=== PATIENT | female | born 1975 | race African-American/Black ===

== ENCOUNTER 2016-07-20 06:29 | Day surgery (SDC) | payer OTHER ==
[2016-07-15 12:26] VITALS: BMI 38.4
[~2016-07-20 06:29] MED LIST: DEXAMETHASONE SOD PHOSPHATE 10 MG/ML 1 ML VIAL IV ONE; HEPARIN SODIUM,PORCINE 5,000 UNIT/ML 1 ML VIAL SQ ONE; LIDOCAINE 1% 20 ML VIAL (10MG/ML) FOR IV START INTRADERMA PRN; SCOPOLAMINE 1.5MG/72HR PATCH TRANSDERM ONE; ceFAZolin 2 GM in SODIUM CHLORIDE 0.9% 100 ML IVPB ONE
[2016-07-20 06:51] VITALS: RESP 16; TEMP 97.2
[2016-07-20] MEDS ORDERED: LIDOCAINE 1% 20 ML VIAL (10MG/ML) FOR IV START INTRADERMA ONE (07:06)
[2016-07-20] MEDS: LACTATED RINGERS 1,000 ML IV SCH ×2 (07:06→07:20)
[2016-07-20] MEDS: ONDANSETRON 4 MG/2 ML VIAL IVP ONE ×2 (07:06→10:01)
--- NOTE | 2016-07-20 07:14 | P.GSHP ---
History of Present Illness H&P Date: 07/20/16 CHIEF COMPLAINT: Gallstones. HISTORY OF PRESENT ILLNESS: Dari Parks is a 41 year-old female who reports several month history of epigastric including right upper quadrant abdominal pain. Her sister, including her mother, had their gallbladder removed. She reports gas bloat. Separately, she has been trying to lose weight and has been on Adipex. She reports primarily pain, which has been persistent for the last several months, hence her presentation today. She also completed an ultrasound that is consistent with gallstones. PAST MEDICAL HISTORY: Please see list. PAST SURGICAL HISTORY: Please see list. MEDICATIONS: Please see list. ALLERGIES: Please see list. SOCIAL HISTORY: No illicit drug use FAMILY HISTORY: No reports of Crohn disease or ulcerative colitis. REVIEW OF ORGAN SYSTEMS: Constitutional: History of weight loss, as she is on Adipex. No fevers or chills. GI: No reports of gastroesophageal reflux disease. No reports of fatty food intolerance. Has reported gas bloat. HEENT: Denies any trouble with vision, hearing or nosebleeds. No difficulty swallowing. LYMPHATIC: The patient denies any lumps and bumps around the neck. ENDOCRINE: Denies any thyroid disorders. Denies any blood sugar glucose intolerance. RESPIRATORY: Denies pneumonia. Denies any troubles with breathing or dyspnea on exertion. CARDIOVASCULAR: Denies any chest pain, palpitations, or recent heart attacks. GENITOURINARY: Denies any blood in urine or increased urinary frequency. MUSCULOSKELETAL: Has back pain, stiffness or joint arthritis. NEUROLOGIC: Denies any numbness or tingling along the distal extremities. No seizure disorders or headaches. PSYCHIATRIC: Denies any depression or suicidal ideation. HEMATOLOGIC: Denies any abnormal bleeding or bruising. BREASTS: Denies any breast lumps, pain or nipple discharge. PHYSICAL EXAM: VITAL SIGNS: Stable GENERAL: Well developed and in no acute distress. Pleasant. HEENT: No sclera icterus. Extraocular movements grossly intact. Moist buccal mucosa. Head is atraumatic, normocephalic. Hears conversational speech. No nasal drainage. NECK: Supple without lymphadenopathy. No JV distention. CHEST: Non-labored respirations and equal bilateral excursions. CARDIOVASCULAR: Regular rate and rhythm. Palpable 2+ radial pulses. ABDOMEN: Soft. Nondistended. Tender right upper quadrant. MUSCULOSKELETAL: No clubbing, cyanosis or edema. NEUROLOGIC: No focal or lateralizing signs. PSYCH: Appropriate affect. Alert and oriented to person, place and time. STUDIES: Ultrasound was consistent with gallstones. ASSESSMENT: 1. Symptomatic gallstones. 2. Obesity. 3. Right upper quadrant abdominal pain. PLAN: 1. She has symptomatic cholelithiasis and I have recommended cholecystectomy. Robotic assisted laparoscopic approach for minimally invasive techniques is feasible. 2. DVT prophylaxis. 3. Antibiotics prophylaxis. 4. Laboratory results were reviewed and demonstrated a low lipase. No evidence of pancreatitis. Past Medical History Additional Past Medical History / Comment(s): GALLBLADDER DISORDER History of Any Multi-Drug Resistant Organisms: None Reported Past Surgical History: Section Additional Past Surgical History / Comment(s): C-SECT X 2 Past Anesthesia/Blood Transfusion Reactions: No Reported Reaction Past Psychological History: No Psychological Hx Reported Smoking Status: Never smoker Past Alcohol Use History: None Reported Past Drug Use History: None Reported - Past Family History Mother Family Medical History: Cancer Medications and Allergies Home Medications Medication Instructions Recorded Confirmed Type No Known Home Medications [No 07/15/16 07/20/16 History Known Home Medications] Allergies Allergy/AdvReac Type Severity Reaction Status Date / Time No Known Allergies Allergy Verified 07/20/16 06:41 Surgical - Exam Vital Signs Temp Pulse Resp BP Pulse Ox 97.2 F L 82 16 110/76 99 07/20/16 06:50 07/20/16 06:50 07/20/16 06:50 07/20/16 06:50 07/20/16 06:50
[2016-07-20] MEDS ORDERED: GLYCOPYRROLATE 0.2 MG/ML 2 ML VIAL ONE (07:29)
[2016-07-20] MEDS ORDERED: fentaNYL (PF) 50 MCG/ML 2 ML AMP ONE (07:29)
[2016-07-20] MEDS ORDERED: MIDAZOLAM 2 MG/2 ML VIAL ONE (07:29)
[2016-07-20] MEDS ORDERED: PROPOFOL 10 MG/ML 20 ML VIAL IV ONE (07:29)
[2016-07-20] MEDS ORDERED: SUCCINYLCHOLINE CHLORIDE 100 MG/5 ML SYR IV ONE (07:29)
[2016-07-20] MEDS ORDERED: ePHEDrine 50 MG/ML 1 ML AMP ONE (07:29)
[2016-07-20] MEDS ORDERED: NEOSTIGMINE 1 MG/ML 10 ML VIAL ONE (07:29)
[2016-07-20] MEDS ORDERED: PHENYLEPHRINE-0.9% NACL SYG 1 MG/10 ML SYRINGE ONE (07:29)
[2016-07-20] MEDS ORDERED: ROCURONIUM BROMIDE 10 MG/ML 10 ML VIAL IV ONE (07:29)
[2016-07-20] MEDS ORDERED: LIDOCAINE 1% INJ 10MG/ML (20 ML MDV) ONE (07:29)
[2016-07-20] MEDS ORDERED: BUPIVACAIN-EPI 0.25%-1:200,000 30 ML VIAL SQ ONE (08:03)
[2016-07-20] MEDS ORDERED: HYDROcodone/APAP 5-325MG 1 EACH TAB PO PRN (09:35)
[2016-07-20] MEDS ORDERED: NALOXONE 0.4 MG/ML 1 ML VIAL IV PRN (09:35)
[2016-07-20] MEDS ORDERED: PROMETHAZINE 25 MG TAB PO PRN (09:35)
[2016-07-20] MEDS ORDERED: ONDANSETRON 4 MG/2 ML VIAL IVP PRN (09:35)
--- NOTE | 2016-07-20 09:45 | P.PCN ---
Date of Procedure: 07/20/16 Preoperative Diagnosis: Symptomatic gallstones Postoperative Diagnosis: Same Procedure(s) Performed: Robotic-assisted laparoscopic cholecystectomy, multiport Anesthesia: GETA, local Surgeon: Crissy Jasso Estimated Blood Loss (ml): 5 Pathology: other (Gallbladder) Condition: stable Disposition: floor Plan - Discharge Summary New Discharge Prescriptions: Hydrocodone/Acetaminophen [[place] 5-325] 1 - 2 each PO Q6HR PRN #30 tab PRN Reason: Pain Discharge Medication List Hydrocodone/Acetaminophen [[place] 5-325] 1 - 2 each PO Q6HR PRN #30 tab 07/20/16 [Rx] Follow up Appointment(s)/Referral(s): Crissy Jasso MD [STAFF PHYSICIAN] - 07/21/16 Patient Instructions/Handouts: Laparoscopic Cholecystectomy (DC) Activity/Diet/Wound Care/Special Instructions: Low Fat diet. No lifting over 4 pounds in 4 weeks. Discharge Disposition: HOME SELF-CARE
[2016-07-20] MEDS: HYDROmorphone 1 MG/ML 1 ML SYRINGE IVP PRN ×2 (09:46→09:51)
[2016-07-20] MEDS ORDERED: KETOROLAC 30 MG/ML 1 ML VIAL IVP ONE (10:14)
[2016-07-20] MEDS ORDERED: HYDROcodone/APAP 5-325MG 1 EACH TAB PO ONE (11:26)
[2016-07-20 11:40] VITALS: BP 108/63; PULSE 86
--- NOTE | 2016-07-20 16:07 | P.OP ---
Date of Procedure: 07/20/16 Description of Procedure: SURGEON: MOISÉS GARCIA MD EVENT EXECUTIVE: Tameka Batista PREOPERATIVE DIAGNOSES: 1. Chronic cholecystitis. 2. Family history of gallbladder disease. 3. Morbid obesity due to excess calories. 4. Body mass index 38.4 5. Symptomatic gallstones. 6. Right upper quadrant abdominal pain. POSTOPERATIVE DIAGNOSES: 1. Chronic cholecystitis. 2. Family history of gallbladder disease. 3. Morbid obesity due to excess calories. 4. Body mass index 38.4 5. Symptomatic gallstones. 6. Right upper quadrant abdominal pain. OPERATION: Robotic-assisted laparoscopic cholecystectomy, multiport ESTIMATED BLOOD LOSS: 10 mL. SPECIMENS REMOVED: Gallbladder. COMPLICATIONS: None. OPERATIVE FINDINGS: 1. Omental adhesions about the gallbladder infundibulum consistent with chronic cholecystitis. INDICATIONS: The patient is a 41-year-old female who presents with symptomatic gallstones and chronic cholelcystitis. Surgical intervention with a laparoscopic cholecystectomy was described at length including injury to the biliary tree, bleeding, infection, need for further surgery. Informed consent was obtained. Robotic assisted laparoscopic approach was described. Benefits and risks of the procedure including but not limited to bleeding, infection, injury to the biliary tree was described. Informed consent was obtained. DESCRIPTION OF PROCEDURE: Patient was brought to the operating room, placed in supine position. After general induction, the abdomen had been prepped and draped in standard sterile fashion. The robotic da [place]ita SI system was primed. After a timeout protocol was performed, the patient had been prepped and draped in standard sterile fashion. The robot was docked along the right lateral abdomen. The patient was repositioned in reverse Trendelenburg position. Please note prior to docking of the robot; however, a 5 mm 0 degrees laparoscopic trocar entry was performed along the left upper quadrant. Next, two 8 mm robotic ports were placed along the right upper abdomen. The camera 12-mm port was maintained along the epigastrium. Another 8 mm port was placed along the left upper abdominal wall after exchanging the 5 mm port. Please note that the ports were placed at least 10 to 15 cm away from the target anatomy of the gallbladder. Using a grasper for arm 3, a long dissecting grasper for arm 2, including hook cautery for arm 1, the robotic system was docked and primed as described. Instruments were interchanged by the medical practice assistant including hook cautery, Bovie cautery scissors and clip appliers. I had sat at the console. Adhesions were identified along the infundibulum of the gallbladder and addressed using hook cautery including blunt dissection with a long forceps grasper. The gallbladder fundus was retracted over the dome of the liver. Initial attention was brought to the infundibulum which was gently retracted in the inferior lateral approach. Using a long forceps grasper, the cystic duct including the cystic artery was carefully skeletonized. Using a clip prosthodontist 2 clips were placed proximally, and 2 clip was placed distally along the cystic duct and then cut with scissors. Again care was taken to avoid any injury to the biliary tree as the common bile duct was clearly visualized during this portion of dissection. Next, the cystic artery was clipped twice proximally, once distally and then cauterized the cut. Electro-Bovie cautery was used to remove the gallbladder from the hepatic fossa without decompression of the gallbladder. Hemostasis was checked and found to be adequate. The robot was undocked. I re-scrubbed into the case. Using a 10 mm Endo Catch bag via the 12 mm port, the specimen was removed from the abdominal cavity. The 12 mm port site was oversewn using 0 Vicryl including a [place] as well. All pneumoperitoneum instruments were evacuated from the abdominal cavity. The incisions were reapproximated using 4-0 Monocryl in an interrupted subcuticular fashion. Please note along the trocar sites, local anesthetic was placed as a field block prior to insertion of all instruments. Dermabond was applied to the skin. At the end of the procedure needle, sponge, and instrument count had been verified correct by the neurosurgical nurse. The patient was transferred to postanesthesia care unit in stable condition.
== END 2016-07-20 12:42 | disposition home or self-care (01) ==
LOC: OR 06:29
PROVIDERS: ATTEND Surgery Plastic and Reconstructive Surgery
DX: K80.10 Calculus of gallbladder with chronic cholecystitis without obstruction (principal); K82.8 Other specified diseases of gallbladder; R59.0 Localized enlarged lymph nodes; E66.01 Morbid (severe) obesity due to excess calories; Z68.38 Body mass index [BMI] 38.0-38.9, adult
CPT/HCPCS: 81025; 88304; 47562; J2250; J1644; J1100; J2710; J0690; J2405; J2001; J3010; J1885; J1170; J2370; J0330; J2704

== ENCOUNTER → 2016-09-17 | Outpatient (CLI) | payer OTHER | LOC: RADMAMWWP 16:44 | PROVIDERS: ATTEND Obstetrics & Gynecology | DX: Z53.9 Procedure and treatment not carried out, unspecified reason (principal) ==

== ENCOUNTER → 2016-09-22 | Outpatient (CLI) | payer OTHER ==
--- NOTE | 2016-09-23 09:23 | MM ---
Reason for exam: screening (asymptomatic). Last mammogram was performed 1 year and 1 month ago. History: Family history of breast cancer in mother. Physical Findings: Nurse did not find any significant physical abnormalities on exam. MG Screening Mammo w CAD Bilateral CC and MLO view(s) were taken. Prior study comparison: August 12, 2015, bilateral MG screening mammo w CAD. July 30, 2014, bilateral MG screening mammo w CAD. The breast tissue is heterogeneously dense. This may lower the sensitivity of mammography. No significant changes when compared with prior studies. ASSESSMENT: Benign, BI-RAD 2 RECOMMENDATION: Routine screening mammogram of both breasts in 1 year.
== END | disposition home or self-care (01) ==
LOC: RADMAMWWP 16:45
PROVIDERS: ATTEND Obstetrics & Gynecology
DX: Z12.31 Encounter for screening mammogram for malignant neoplasm of breast (principal); Z80.3 Family history of malignant neoplasm of breast

== ENCOUNTER → 2016-12-23 | Outpatient (CLI) | payer OTHER ==
--- NOTE | 2016-12-23 22:35 | CT ---
EXAMINATION TYPE: CT abdomen pelvis wo con DATE OF EXAM: 12/23/2016 COMPARISON: NONE HISTORY: 41-year-old female Cholecystectomy 07/2016, pain at incision sites on and off since then. CT DLP: 2501.00 mGycm. Automated exposure control for dose reduction was used. TECHNIQUE: Contiguous axial scanning of the abdomen and pelvis without IV contrast. Coronal and sagit kiera reconstructions performed. FINDINGS: The heart is normal size with trace anterior basilar pericardial fluid. Lung bases clear without pleu ral effusion. 1.3 cm hypodense lesion central right liver lobe most suggestive of a cyst. A couple additional tiny subcentimeter hypodensities are present in the liver, also likely cysts but too small for accurate CT characterization. Gallbladder surgically absent. There is some hyperdensity in the region of the gallbladder fossa radha uring 1.1 x 0.4 cm near the expected level of the cystic duct, coronal image 47 and axial image 23, t hat could represent some surgical material or some residual cystic duct calculi. No suspicious calcif ication seen along the expected course of the bile duct. No abnormal fluid collection at the gallblad [place] fossa. Noncontrast appearance of the adrenal glands, kidneys, spleen, and pancreas show no gross abnormality . No dilated small bowel, free fluid, or free air. No mesenteric or retroperitoneal lymphadenopathy celine ntified. There is moderate stool burden without pericolonic inflammatory change. Bladder partially urine distended. Uterus is visualized with cervical nabothian cysts. Both ovaries a re visualized with the 2.2 cm dominant follicle or functional cyst on the left. No abnormal fluid col lection in the pelvis or pelvic lymphadenopathy seen.. The patient's abdominal wall is examined and shows no evident incisional hernia. Bones: No osseous destructive process. IMPRESSION: 1. Status post cholecystectomy. There is some linear hyperdensity measuring 1.1 x 0.4 cm at the expec ashley level of the cystic duct that could represent surgical material or some residual calculi in the c ystic duct. No suspicious calcification seen along the bile duct. 2. No specific abnormality identified of the abdominal wall.
== END | disposition home or self-care (01) ==
LOC: RADCTMAIN 19:18
PROVIDERS: ATTEND Surgery Plastic and Reconstructive Surgery
DX: R93.41 Abnormal radiologic findings on diagnostic imaging of renal pelvis, ureter, or bladder (principal); R10.84 Generalized abdominal pain; Z90.49 Acquired absence of other specified parts of digestive tract
CPT/HCPCS: 74176

== ENCOUNTER 2017-04-14 01:26 | Emergency (ER) | payer OTHER ==
[2017-04-14] MEDS ORDERED: SODIUM CHLORIDE 0.9% 1,000 ML IV STA (02:03)
[2017-04-14] MEDS ORDERED: SODIUM CHLORIDE 0.9% 2,000 ML IV ONE (02:03)
[2017-04-14] MEDS ORDERED: ONDANSETRON 4 MG/2 ML VIAL IVP STA ×2 (02:03→04:15)
[2017-04-14 02:56] LABS: Basophils % (A) 0 %; Eosinophils # (A) 0.1 k/uL (0-0.7); Eosinophils % (A) 1 %; HCT 41.9 % (34.0-46.0); HGB 13.3 gm/dL (11.4-16.0); Lymphocytes % (A) 13 %; MCH 28.6 pg (25.0-35.0); MCHC 31.7 g/dL (31.0-37.0); MCV 90.3 fL (80.0-100.0); Mean Platelet Volume 7.8; Monocytes # (A) 0.4 k/uL (0-1.0); Monocytes % (A) 6 %; Neutrophils # (A) 5.9 k/uL (1.3-7.7); Neutrophils % (A) 79 %; Platelet Count 292 k/uL (150-450); RBC 4.64 m/uL (3.80-5.40); RDW 13.4 % (11.5-15.5); WBC 7.5 k/uL (3.8-10.6)
[2017-04-14 03:00] LABS: ALT 37 U/L (9-52); AST 24 U/L (14-36); Albumin 4.1 g/dL (3.5-5.0); Alkaline Phosphatase 55 U/L (38-126); Anion Gap 12 mmol/L; Blood Urea Nitrogen 11 mg/dL (7-17); Calcium 9.5 mg/dL (8.4-10.2); Carbon Dioxide 28 mmol/L (22-30); Chloride 103 mmol/L (98-107); Glucose 127 mg/dL (74-99); Magnesium 1.9 mg/dL (1.6-2.3); Sodium 143 mmol/L (137-145); Total Bilirubin 0.4 mg/dL (0.2-1.3); Total Protein 7.5 g/dL (6.3-8.2)
--- NOTE | 2017-04-14 03:04 | ED ---
Dizziness HPI - General Chief Complaint: Dizziness Stated Complaint: Nausea/Dizzy Time Seen by Provider: 04/14/17 01:45 Source: patient, RN notes reviewed Mode of arrival: wheelchair Limitations: no limitations - History of Present Illness Initial Comments: This is a 41-year-old female who presents with complaints of dizziness. He states she's had dizziness for last day or so she had vomiting that started tonight. She also had rhinorrhea started yesterday. Her sister has been diagnosed with influenza. He had a cough for 4 days with the dizziness she states she does any overt fevers chills or sweats she was diagnosed with upper respiratory infection she states. MD Complaint: dizziness, lightheadedness, other - Related Data Home Medications Medication Instructions Recorded Confirmed Ciprofloxacin HCl [Cipro] 250 mg PO BID 04/14/17 04/14/17 Previous Rx's Medication Instructions Recorded Meclizine [Antivert] 25 mg PO TID #20 tab 04/14/17 Ondansetron [Zofran ODT] 4 mg PO Q8HR #7 tab 04/14/17 Oseltamivir [Tamiflu] 75 mg PO Q12HR #14 cap 04/14/17 Allergies Allergy/AdvReac Type Severity Reaction Status Date / Time No Known Allergies Allergy Verified 07/20/16 06:41 Review of Systems ROS Statement: Those systems with pertinent positive or pertinent negative responses have been documented in the HPI. ROS Other: All systems not noted in ROS Statement are negative. Past Medical History Additional Past Medical History / Comment(s): GALLBLADDER DISORDER History of Any Multi-Drug Resistant Organisms: None Reported Past Surgical History: Section, Cholecystectomy Additional Past Surgical History / Comment(s): C-SECT X 2 Past Anesthesia/Blood Transfusion Reactions: No Reported Reaction Past Psychological History: No Psychological Hx Reported Smoking Status: Never smoker Past Alcohol Use History: None Reported Past Drug Use History: None Reported - Past Family History Mother Family Medical History: Cancer General Exam - General Exam Comments Initial Comments: This is a well-developed well-nourished awake alert oriented 3 female Limitations: no limitations General appearance: alert, in no apparent distress Head exam: Present: atraumatic, normocephalic, normal inspection Eye exam: Present: normal appearance, PERRL, EOMI. Absent: scleral icterus, conjunctival injection, periorbital swelling ENT exam: Present: normal exam, mucous membranes moist, other (Boggy nasal mucosa.) Neck exam: Present: normal inspection. Absent: tenderness, meningismus, lymphadenopathy Respiratory exam: Present: normal lung sounds bilaterally. Absent: respiratory distress, wheezes, rales, rhonchi, stridor Cardiovascular Exam: Present: normal rhythm, tachycardia, normal heart sounds. Absent: systolic murmur, diastolic murmur, rubs, gallop, clicks GI/Abdominal exam: Present: soft, normal bowel sounds. Absent: distended, tenderness, guarding, rebound, rigid Extremities exam: Present: normal inspection, full ROM, normal capillary refill. Absent: tenderness, pedal edema, joint swelling, calf tenderness Back exam: Present: normal inspection Neurological exam: Present: alert, oriented X3, CN II-XII intact Psychiatric exam: Present: normal affect, normal mood Skin exam: Present: warm, dry, intact, normal color. Absent: rash Course Vital Signs 04/14/17 04/14/17 01:36 04:24 Temperature 97.9 F 97.1 F L Pulse Rate 103 H 84 Respiratory 20 18 Rate Blood Pressure 111/81 109/68 O2 Sat by Pulse 100 99 Oximetry - Reevaluation(s) Reevaluation #1: 04/14/17 03:24 The patient is complaining of feeling dizzy she is flu A positive. EKG Findings - EKG Results: EKG: interpreted by FELIZ, sinus rhythm (Sinus rhythm rate 90. We'll 132 QRS duration 76 QT since QTC of 360/450 st-t wave changes.) Medical Decision Making - Medical Decision Making I did discuss the findings with the patient and family member the patient will be discharged on appropriate medication she does have influenza type A as well as vertigo - Lab Data Result diagrams: 04/14/17 02:35 04/14/17 02:35 Lab Results 04/14/17 04/14/17 04/14/17 Range/Units 02:35 02:35 02:35 WBC 7.5 (3.8-10.6) k/uL RBC 4.64 (3.80-5.40) m/uL Hgb 13.3 (11.4-16.0) gm/dL Hct 41.9 (34.0-46.0) % MCV 90.3 (80.0-100.0) fL MCH 28.6 (25.0-35.0) pg MCHC 31.7 (31.0-37.0) g/dL RDW 13.4 (11.5-15.5) % Plt Count 292 (150-450) k/uL Neutrophils % 79 % Lymphocytes % 13 % Monocytes % 6 % Eosinophils % 1 % Basophils % 0 % Neutrophils # 5.9 (1.3-7.7) k/uL Lymphocytes # 1.0 (1.0-4.8) k/uL Monocytes # 0.4 (0-1.0) k/uL Eosinophils # 0.1 (0-0.7) k/uL Basophils # 0.0 (0-0.2) k/uL Sodium 143 (137-145) mmol/L Potassium 4.2 (3.5-5.1) mmol/L Chloride 103 (98-107) mmol/L Carbon Dioxide 28 (22-30) mmol/L Anion Gap 12 mmol/L BUN 11 (7-17) mg/dL Creatinine 0.80 (0.52-1.04) mg/dL Est GFR (MDRD) Af Amer >60 (>60 ml/min/1.73 sqM) Est GFR (MDRD) Non-Af >60 (>60 ml/min/1.73 sqM) Glucose 127 H (74-99) mg/dL Calcium 9.5 (8.4-10.2) mg/dL Magnesium 1.9 (1.6-2.3) mg/dL Total Bilirubin 0.4 (0.2-1.3) mg/dL AST 24 (14-36) U/L ALT 37 (9-52) U/L Alkaline Phosphatase 55 (38-126) U/L Total Protein 7.5 (6.3-8.2) g/dL Albumin 4.1 (3.5-5.0) g/dL Influenza Type A RNA Not Detected (Not Detectd) Influenza Type B (PCR) Detected H (Not Detectd) - Radiology Data Radiology results: report reviewed (Review the imaging shows no acute findings.) , image reviewed Disposition Clinical Impression: Influenza A, Vertigo Disposition: HOME SELF-CARE Condition: Good Instructions: Dizziness (ED), Vertigo (ED), Influenza (ED) Prescriptions: Meclizine [Antivert] 25 mg PO TID #20 tab Ondansetron [Zofran ODT] 4 mg PO Q8HR #7 tab Oseltamivir [Tamiflu] 75 mg PO Q12HR #14 cap Referrals: Diego Whiting DO [Primary Care Provider] - 1-2 days
[2017-04-14 03:06] LABS: Potassium 4.2 mmol/L (3.5-5.1)
[2017-04-14] MEDS ORDERED: MECLIZINE 12.5 MG TAB PO STA (03:22)
--- NOTE | 2017-04-14 03:22 | XR ---
EXAM: XR Chest, 2 Views CLINICAL HISTORY: Reason: cough TECHNIQUE: Frontal and lateral views of the chest. COMPARISON: No relevant prior studies available. FINDINGS: Lungs: The lungs are slightly hypoexpanded without segmental airspace disease. Pleural space: Unremarkable. No pneumothorax. Heart: Unremarkable. No cardiomegaly. Mediastinum: Unremarkable. Bones/joints: Unremarkable. Other findings: IMPRESSION: Slightly diminished lung volumes without segmental airspace disease or definite acute cardiopulmonary process.
[2017-04-14] MEDS ORDERED: OSELTAMIVIR 75 MG CAP PO STA (03:23)
[2017-04-14 04:25] VITALS: BP 109/68; PULSE 84; RESP 18; TEMP 97.1
== END 2017-04-14 05:20 | disposition home or self-care (01) ==
LOC: EC 01:26
DX: J10.1 Influenza due to other identified influenza virus with other respiratory manifestations (principal); R42 Dizziness and giddiness
CPT/HCPCS: 36415; 93005; 80053; 83735; 85025; 87502; 71046; 99284; 96374; 96375; 96361 ×2; J2405

== ENCOUNTER → 2017-10-25 | Outpatient (CLI) | payer OTHER ==
--- NOTE | 2017-10-26 13:45 | MM ---
Reason for exam: screening (asymptomatic). Last mammogram was performed 1 year and 1 month ago. History: Family history of breast cancer in mother. Physical Findings: A clinical breast exam by your physician is recommended on an annual basis and results should be correlated with mammographic findings. MG Screening Mammo w CAD Bilateral CC and MLO view(s) were taken. Prior study comparison: September 22, 2016, bilateral MG screening mammo w CAD. August 12, 2015, bilateral MG screening mammo w CAD. The breast tissue is heterogeneously dense. This may lower the sensitivity of mammography. There is no discrete abnormality. No significant changes when compared with prior studies. ASSESSMENT: Negative, BI-RAD 1 RECOMMENDATION: Routine screening mammogram of both breasts in 1 year.
== END | disposition home or self-care (01) ==
LOC: RADMAMWWP 16:46
PROVIDERS: ATTEND Obstetrics & Gynecology
DX: Z12.31 Encounter for screening mammogram for malignant neoplasm of breast (principal)
CPT/HCPCS: 77067

== ENCOUNTER → 2018-06-14 | Outpatient (CLI) | payer OTHER ==
--- NOTE | 2018-06-14 14:06 | EST ---
EXERCISE STRESS AGE: 43 SEX: F HT: 69" WT: 268 PROTOCOL: Stress Test STAGE: 2 DURATION OF EXERCISE: 5:00 HEART RATE REST: 82 BLOOD PRESSURE REST: 138/86 MAXIMUM HEART RATE ACHIEVED: 161 MAXIMUM BLOOD PRESSURE: 137/82 85% MPHR: 150 100% MPHR: 176 METS: 7.0 INDICATIONS: Chest pain. CLINICAL INFORMATION: Baseline rhythm is sinus mechanism, rate of 82, normal axis, intervals, normal echocardiogram. Baseline blood pressure 138/86 mmHg. Patient exercised on Greg protocol for 5 minutes reaching peak rate of 161 beats per minute which is equal to 91% maximum predicted heart rate. Peak blood pressure 137/82 mmHg. Test was terminated secondary to fatigue. There was no chest pain. Electrocardiograph monitoring revealed no evidence of diagnostic ischemic ST deviation. CONCLUSION: 1. Decreased exercise tolerance with no chest pain. 2. Normal electrocardiographic response to exercise with no evidence of exercise- induced ischemia. MMODL / IJN: [id number] /
== END ==
LOC: RADNMMAIN 10:18
PROVIDERS: ATTEND Internal Medicine
DX: R07.9 Chest pain, unspecified (principal)
CPT/HCPCS: 93017

== ENCOUNTER → 2018-09-13 | Outpatient (CLI) | payer OTHER ==
--- NOTE | 2018-09-14 09:13 | MR ---
EXAMINATION TYPE: MR lumbar spine wo con DATE OF EXAM: 09/13/2018 COMPARISON: Lumbar spine CT 12/23/2016 HISTORY: LBP x 6 yrs, recently getting worse TECHNIQUE: Multiplanar, multisequence images of the lumbar spine were acquired. L1-L2: No disc herniation or foraminal encroachment, no central stenosis. L2-L3: No disc herniation. No significant central stenosis or foraminal encroachment. L3-L4: Posterior minimal disc bulge contacts anterior thecal sac. Short pedicles are noted, there is some mild foraminal encroachment suspected. No significant central stenosis. L4-L5: Minimal posterior broad-based disc bulge causes slight anterior mass effect on the thecal sac. There is facet arthropathy with hypertrophy ligamentum flavum causing minimal posterior lateral mass effect on the thecal sac. There may be some encroachment on the lateral recesses, short pedicles as well as circumferential extension of endplate disc complex encroaches somewhat on the foramina greate r on the right than on the left. L5-S1: Short pedicles may contribute to cause some foraminal encroachment greater on the right. There is mild posterior broad-based disc bulge causing slight anterior mass effect on the thecal sac. Ther e may be contact with the proximal S1 nerve roots. No significant central stenosis. Lumbar segments are intact. No paraspinal masses are identified. Conus medullaris has a normal appe arance. Some mild loss of disc height and signal present at intervertebral levels. Mild multilevel sp ondylosis and endplate discogenic marrow signal change. IMPRESSION: Mild degenerative disc disease as described.
== END | disposition home or self-care (01) ==
LOC: RADMRIMAIN 10:29
PROVIDERS: ATTEND Internal Medicine
DX: M51.36 Other intervertebral disc degeneration, lumbar region (principal)
CPT/HCPCS: 72148

== ENCOUNTER → 2018-10-25 | Outpatient (CLI) | payer OTHER ==
[2018-10-25 14:46] LABS: HCT 40.2 % (34.0-46.0); HGB 12.2 gm/dL (11.4-16.0); Hypochromasia Slight; MCH 27.9 pg (25.0-35.0); MCHC 30.3 g/dL (31.0-37.0); Mean Platelet Volume 7.8; Platelet Count 347 k/uL (150-450); RBC 4.38 m/uL (3.80-5.40); RDW 14.3 % (11.5-15.5)
[2018-10-25 15:05] LABS: T4, Free (Free Thyroxine) 1.36 ng/dL (0.78-2.19)
== END | disposition home or self-care (01) ==
LOC: LAB 14:17
PROVIDERS: ATTEND Obstetrics & Gynecology
DX: Z13.220 Encounter for screening for lipoid disorders (principal); Z13.29 Encounter for screening for other suspected endocrine disorder; N92.0 Excessive and frequent menstruation with regular cycle
CPT/HCPCS: 80061; 82670; 82947; 83001; 83002; 84146; 84439; 84443; 84479; 85027

== ENCOUNTER → 2018-10-31 | Outpatient (CLI) | payer OTHER ==
--- NOTE | 2018-11-01 07:14 | US ---
EXAMINATION TYPE: US pelvic complete DATE OF EXAM: 10/31/2018 COMPARISON: CT 12/23/2016, US 02/06/2014 CLINICAL HISTORY: N92.0 Menorrhagia. Heavy cycles TECHNIQUE: Transabdominal sonographic images of the pelvis were acquired. Patient declined Transvagi nal ultrasound at this time Date of LMP: October 18, 2018 EXAM MEASUREMENTS: Uterus: 10.2 x 5.4 x 5.5 cm Endometrial Stripe: 0.4 cm Right Ovary: 2.6 x 1.7 x 1.7 cm Left Ovary: 3.3 x 1.7 x 1.7 cm 1. Uterus: Anteverted Heterogeneous. Multiple probable fibroids visualized largest measuring 2.5 x 2.2 x 2.3 cm. This appears intramural. A smaller lesion appears subserosal. 2. Endometrium: wnl 3. Right Ovary: wnl 4. Left Ovary: wnl 5. Bilateral Adnexa: wnl 6. Posterior cul-de-sac: wnl IMPRESSION: Heterogenous enlarged fibroid uterus with at least 3 uterine leiomyomas the largest measu ring up to 2.5 cm. A small leiomyoma appears subserosal and the remainder appear intramural.
== END | disposition home or self-care (01) ==
LOC: RADUSWWP 16:14
PROVIDERS: ATTEND Obstetrics & Gynecology
DX: D25.1 Intramural leiomyoma of uterus (principal); D25.2 Subserosal leiomyoma of uterus
CPT/HCPCS: 76856

== ENCOUNTER → 2018-11-23 | Outpatient (CLI) | payer OTHER ==
--- NOTE | 2018-11-25 07:48 | MM ---
Reason for exam: screening (asymptomatic). Last mammogram was performed 1 year and 1 month ago. History: Family history of breast cancer in mother. Physical Findings: A clinical breast exam by your physician is recommended on an annual basis and results should be correlated with mammographic findings. MG Screening Mammo w CAD Bilateral CC, MLO, and XCCL view(s) were taken. Prior study comparison: October 25, 2017, bilateral MG screening mammo w CAD. September 22, 2016, bilateral MG screening mammo w CAD. The breast tissue is heterogeneously dense. This may lower the sensitivity of mammography. No significant changes when compared with prior studies. ASSESSMENT: Benign, BI-RAD 2 RECOMMENDATION: Routine screening mammogram of both breasts in 1 year.
== END | disposition home or self-care (01) ==
LOC: RADMAMWWP 16:44
PROVIDERS: ATTEND Obstetrics & Gynecology
DX: Z12.31 Encounter for screening mammogram for malignant neoplasm of breast (principal)
CPT/HCPCS: 77067

== ENCOUNTER → 2018-12-27 | Outpatient (CLI) | payer OTHER | END | disposition home or self-care (01) | LOC: LABWHC1 16:47 | PROVIDERS: ATTEND Obstetrics & Gynecology | DX: O20.0 Threatened abortion (principal) | CPT/HCPCS: 36415; 84702 ==

== ENCOUNTER → 2018-12-29 | Outpatient (CLI) | payer OTHER | END | disposition home or self-care (01) | LOC: LABWHC1 16:45 | PROVIDERS: ATTEND Obstetrics & Gynecology | DX: O20.0 Threatened abortion (principal) | CPT/HCPCS: 36415; 84702 ==

== ENCOUNTER → 2018-12-30 | Outpatient (CLI) | payer OTHER ==
--- NOTE | 2018-12-30 11:20 | US ---
EXAMINATION TYPE: Transabdominal DATE OF EXAM: 12/30/2018 10:52 AM COMPARISON: NONE CLINICAL HISTORY: abnormal clinical findings, R68.89. EXAM PERFORMED: Transvaginal (TV) and Transabdominal (TA) EXAM MEASUREMENTS: GESTATIONAL AGE / DATING Physician Established: Not yet established Dates by LMP: (6 weeks/4 days) EDC: 11/14/18 Dates by First Scan: No previous this is first scan Dates by Current Scan for: Unable to date by today's study MATERNAL ANATOMY Uterus: 10.4 x 5.7 x 7.1cm fibroid uterus, largest measuring 3.0 x 3.3 x 2.6cm Right Ovary: obscured by bowel gas Left Ovary: 3.4 x 2.0 x 1.9cm Post CDS / Adnexa: wnl Presence of free fluid: Presence of corpus luteal cyst: Presence of subchorionic bleed: GESTATION / SURVEY Morbidly obese patient. CRL: possible 3mm crl (6 weeks/0 days) MSD: 1.1cm (5 weeks/6 days) Yolk Sac (normal less than 6mm): 5mm Heart Rate: no heart tones Possible demise, vs too early to date. Date of LMP: 11/14/18 Beta HcG (if available): 14,000 3 days prior, 13,000 yesterday IMPRESSION: 1. No heart rate identified although this is at the beginning stage of visualization. Follow-up examination and correlation with serial beta-hCG is recommended. Early intrauterine demise latrice leigh early is within the differential.
== END | disposition home or self-care (01) ==
LOC: LABWHC1 10:10
PROVIDERS: ATTEND Obstetrics & Gynecology
DX: R68.89 Other general symptoms and signs (principal); Z88.2 Allergy status to sulfonamides
CPT/HCPCS: 76801; 76817

== ENCOUNTER → 2019-01-05 | Outpatient (CLI) | payer OTHER | END | disposition home or self-care (01) | LOC: LABWHC1 14:32 | PROVIDERS: ATTEND Obstetrics & Gynecology | DX: O02.1 Missed abortion (principal) | CPT/HCPCS: 36415; 84702 ==

== ENCOUNTER → 2019-01-09 | Outpatient (CLI) | payer OTHER | END | disposition home or self-care (01) | LOC: LABWHC1 07:45 | PROVIDERS: ATTEND Obstetrics & Gynecology | DX: O02.1 Missed abortion (principal) | CPT/HCPCS: 36415; 84702 ==

== ENCOUNTER → 2019-01-09 | Outpatient (CLI) | payer OTHER ==
--- NOTE | 2019-01-09 18:20 | US ---
EXAMINATION TYPE: Transabdominal DATE OF EXAM: 01/09/2019 6:02 PM COMPARISON: US CLINICAL HISTORY: Ectopic O009.0. Ectopic per order. G 4 P2. EXAM PERFORMED: Transvaginal (TV) and Transabdominal (TA) EXAM MEASUREMENTS: GESTATIONAL AGE / DATING Physician Established: Not yet established Dates by LMP: (8 weeks/0 days) EDC: 08/21/2019 Dates by First Scan: No dates Dates by Current Scan for: ( 5 weeks/5 days) EDC: 09/06/2019. Cannot detect heart tones. MATERNAL ANATOMY Uterus: 10.4 x 7.5 x 6.1 cm. Anechoic areas seen in cervix, largest measures: 1.8 x 1.6 x 1.5 cm. Hyp oechoic/mixed area seen in cervix measurin.4 x 1.3 x 0.9 cm. Right Ovary: 3.4 x 2.1 x 1.6 cm. Left Ovary: 3.8 x 1.9 x 2.0 cm. Post CDS / Adnexa: appears wnl Presence of free fluid: not seen Presence of corpus luteal cyst: not seen Presence of subchorionic bleed: not seen GESTATION / SURVEY CRL: possible pole measures (6 weeks/0 days) MSD: 1.25 cm. (5 weeks/3 days) Yolk Sac (normal less than 6mm): not seen Heart Rate: cannot detect heart tones Date of LMP: 08/20/2018 Gestational sac and possible pole seen. No heart tones seen. IMPRESSION: 4 mm pole seen but no cardiac activity identified on the transvaginal images. This is suggestiv e of intrauterine demise at 5 weeks 5 days. No evidence of ectopic .
== END | disposition home or self-care (01) ==
LOC: RADUSMAIN 16:55
PROVIDERS: ATTEND Obstetrics & Gynecology
DX: O00.90 Unspecified ectopic pregnancy without intrauterine pregnancy (principal); Z3A.01 Less than 8 weeks gestation of pregnancy
CPT/HCPCS: 76801; 76817

== ENCOUNTER → 2019-01-17 | Outpatient (CLI) | payer OTHER | END | disposition home or self-care (01) | LOC: LABWHC1 14:31 | PROVIDERS: ATTEND Obstetrics & Gynecology | DX: O02.1 Missed abortion (principal); Z3A.00 Weeks of gestation of pregnancy not specified | CPT/HCPCS: 36415; 84702 ==

== ENCOUNTER → 2019-01-25 | Outpatient (CLI) | payer OTHER | END | disposition home or self-care (01) | LOC: LABWHC1 15:56 | PROVIDERS: ATTEND Obstetrics & Gynecology | DX: O03.9 Complete or unspecified spontaneous abortion without complication (principal) | CPT/HCPCS: 36415; 84702 ==

== ENCOUNTER → 2019-02-03 | Outpatient (CLI) | payer OTHER | LOC: LABWHC1 15:53 | PROVIDERS: ATTEND Obstetrics & Gynecology | DX: O03.9 Complete or unspecified spontaneous abortion without complication (principal) | CPT/HCPCS: 36415; 84702 ==

== ENCOUNTER → 2019-03-07 | Outpatient (CLI) | payer OTHER ==
[2019-03-07 18:03] LABS: Basophils % (A) 0 %; Eosinophils # (A) 0.1 k/uL (0-0.7); Eosinophils % (A) 1 %; HCT 37.4 % (34.0-46.0); HGB 12.1 gm/dL (11.4-16.0); Lymphocytes # (A) 2.5 k/uL (1.0-4.8); Lymphocytes % (A) 35 %; MCH 29.4 pg (25.0-35.0); MCHC 32.3 g/dL (31.0-37.0); MCV 91.1 fL (80.0-100.0); Mean Platelet Volume 7.9; Monocytes # (A) 0.3 k/uL (0-1.0); Monocytes % (A) 5 %; Neutrophils % (A) 57 %; Platelet Count 249 k/uL (150-450); RBC 4.11 m/uL (3.80-5.40); RDW 13.8 % (11.5-15.5); WBC 7.1 k/uL (3.8-10.6)
== END | disposition home or self-care (01) ==
LOC: LABWHC1 16:50
PROVIDERS: ATTEND Obstetrics & Gynecology
DX: Z01.812 Encounter for preprocedural laboratory examination (principal)
CPT/HCPCS: 36415; 85025

== ENCOUNTER 2019-03-16 08:48 | Day surgery (SDC) | payer OTHER ==
[2019-03-14 13:17] VITALS: BMI 37.9
--- NOTE | 2019-03-15 17:56 | P.HPOB ---
History of Present Illness H&P Date: 03/15/19 Chief Complaint: Dysfunctional uterine bleeding with fibroid uterus Dari is a 43-year-old female with heavy vaginal bleeding. She is noted to have a an enlarged uterus and fibroid uterus and she continues to have very heavy vaginal bleeding. Symptoms have made it very difficult for her to function when she is on her period and she is requesting a NovaSure to relieve her symptoms. An endometrial biopsy was attempted but revealed scant tissue therefore she is scheduled for a D&C with hysteroscopy and NovaSure ablation. Currently she is scheduled for a laparoscopic tubal occlusion as NovaSure is not designed to be a control. However, she was hesitant to do that at her prior visit and will be reassessed in the morning. Risks/benefits/alternatives to this procedure were reviewed with patient in detail and did include but were not limited to bleeding and infection, damage to bladder, damage to bowel, vascular injuries, nerve damage, potential perforation of the uterus and/or thermal injuries. Past Medical History Past Medical History: No Reported History Additional Past Medical History / Comment(s): GALLBLADDER DISORDER History of Any Multi-Drug Resistant Organisms: None Reported Past Surgical History: Section, Cholecystectomy Additional Past Surgical History / Comment(s): C-SECT X 2 Past Anesthesia/Blood Transfusion Reactions: No Reported Reaction Smoking Status: Never smoker - Past Family History Mother Family Medical History: Cancer Medications and Allergies Home Medications Medication Instructions Recorded Confirmed Type No Known Home Medications 03/14/19 03/14/19 History Allergies Allergy/AdvReac Type Severity Reaction Status Date / Time No Known Allergies Allergy Verified 03/14/19 13:13 Exam Osteopathic Statement: *. No significant issues noted on an osteopathic structural exam other than those noted in the History and Physical/Consult. - OBG Physical Exam Breast: both: normal (no masses) Abdomen: bowel sounds normal, no diffuse tenderness, no bruit present, no guarding noted, no hepatomegaly, no splenomegaly, no mass Vulva: both: normal Vagina: normal moisture, no discharge Cervix: no lesion, no discharge Uterus: normal size, normal contour Adnexa: both: normal Anus/Rectum: normal perianal skin, no rectal mass, no hemorrhoids, heme negative
[~2019-03-16 08:48] MED LIST changes: -HEPARIN SODIUM,PORCINE 5,000 UNIT/ML 1 ML VIAL SQ ONE; +LACTATED RINGERS 1,000 ML IV SCH; -LIDOCAINE 1% 20 ML VIAL (10MG/ML) FOR IV START INTRADERMA PRN; +MIDAZOLAM 2 MG/2 ML VIAL IV PRN; +Pre Op ABX Message 1 EACH MISC MISCELLANE ONE; -ceFAZolin 2 GM in SODIUM CHLORIDE 0.9% 100 ML IVPB ONE
[2019-03-16 09:12] VITALS: RESP 16
[2019-03-16] MEDS: ONDANSETRON 4 MG/2 ML VIAL IVP ONE ×2 (09:23→11:15)
[2019-03-16] MEDS ORDERED: LIDOCAINE 1% 20 ML VIAL (10MG/ML) FOR IV START INTRADERMA ONE (09:23)
[2019-03-16] MEDS ORDERED: GLYCOPYRROLATE 0.2 MG/ML 2 ML VIAL ONE (09:41)
[2019-03-16] MEDS ORDERED: KETOROLAC 30 MG/ML 1 ML VIAL ONE (09:41)
[2019-03-16] MEDS ORDERED: fentaNYL (PF) 50 MCG/ML 2 ML AMP ONE (09:41)
[2019-03-16] MEDS ORDERED: PROPOFOL 10 MG/ML 20 ML VIAL IV ONE (09:41)
[2019-03-16] MEDS ORDERED: BUPIVACAINE (PF) 0.25% 30 ML VIAL SQ ONE (09:41)
[2019-03-16] MEDS ORDERED: ROCURONIUM BROMIDE 10 MG/ML 10 ML VIAL IV ONE (09:41)
[2019-03-16] MEDS ORDERED: MIDAZOLAM 2 MG/2 ML VIAL ONE (09:41)
[2019-03-16] MEDS ORDERED: NEOSTIGMINE 1 MG/ML 10 ML VIAL ONE (09:41)
[2019-03-16] MEDS ORDERED: SUCCINYLCHOLINE CHLORIDE 100 MG/5 ML SYR IV ONE (09:41)
[2019-03-16] MEDS ORDERED: LIDOCAINE 1% INJ 10MG/ML (20 ML MDV) ONE (09:41)
[2019-03-16 10:43] VITALS: TEMP 97.7
[2019-03-16] MEDS: HYDROmorphone 0.5 MG/0.5 ML SYRINGE IVP PRN ×4 (10:49→11:11)
--- NOTE | 2019-03-16 10:49 | P.OP ---
Date of Procedure: 03/16/19 Preoperative Diagnosis: Menorrhagia and family planning Postoperative Diagnosis: Same multiple fibroids noted Procedure(s) Performed: Laparoscopic tubal occlusion with Filshie clips and a D&C with hysteroscopy and NovaSure Anesthesia: HARINDER Surgeon: Adam Corley Estimated Blood Loss (ml): 5 Urine output (ml): 30 Pathology: other (Uterine curettings) Condition: stable Disposition: same day Operative Findings: Multiple fibroids are noted on her uterus Description of Procedure: Dari was taken to the operating suite where a general anesthetic was found be adequate. She was prepped and draped in normal sterile fashion and placed in dorsal lithotomy position. Initially a speculum was inserted into the vagina and the anterior lip of the cervix was identified and grasped with an Allis clamp. Uterus was then sounded to 9-1/2 cm and cervix was dilated. Uterus mid layer was then inserted without difficulty and instruments were removed otherwise. Red rubber catheter was then used to drain the bladder urine. This was then removed, and gloves were changed and attention was turned to the abdominal portion of the procedure. Approximately 2 mL of quarter percent Marcaine was injected periumbilically and through this injected anesthetic a 5 mm skin incision was made. Through this incision under direct visualization with an optical trocar and sleeve the camera was inserted. Once peritoneal placement was assured gas was allowed to fully insufflate the abdomen and patient was then placed in steep Trendelenburg position. Midline skin incision was then made 3 cm above the pubic symphysis through an 8 mm skin incision. This port and sleeve was also inserted under direct visualization. Once this was completed uterus was elevated and fallopian tubes were identified. First the right fallopian tube had a Filshie clip applied 2-3 cm from uterine cornu then the left tube in a similar fashion was occluded. Once this was completed with no bleeding noted in the mesosalpinx incidents were removed and gas allowed to fully expel from the abdomen. 5 deep breaths were provided during this process. 4-0 Vicryl was then used to close the incisions subcuticularly. Attention was then returned to the vagina where the uterine dilator was removed and speculum was reinserted. Allis clamp was again used to grasp the anterior cervix and the cervix was fully dilated. Camera was inserted no specific gross pathology was noted therefore sharp curettings of the endometrium were obtained and sent to pathology for evaluation on [facility]. Once this was completed the NovaSure system was inserted with length of 4 to half and a width of 2-1/2 it was tested and once it passes. Patency test it was enabled and burned for 1 minute and 9 seconds. At the conclusion of the burn NovaSure was removed and camera was reinserted with good burn noted. All instruments were then removed. Sponge, lap, needle counts were all correct 2. Patient was then taken to the recovery room in stable and satisfactory condition. Plan - Discharge Summary Discharge Rx Participant: Yes New Discharge Prescriptions: New Ibuprofen [Motrin] 600 mg PO Q6HR PRN #30 tab PRN Reason: Pain HYDROcodone/APAP 5-325MG [[place] 5-325] 1 tab PO Q4HR PRN #30 tab PRN Reason: Pain Discharge Medication List HYDROcodone/APAP 5-325MG [[place] 5-325] 1 tab PO Q4HR PRN #30 tab 03/16/19 [Rx] Ibuprofen [Motrin] 600 mg PO Q6HR PRN #30 tab 03/16/19 [Rx] Follow up Appointment(s)/Referral(s): Adam Corley DO [Doctor of Osteopathic Medicine] - 2 Weeks Activity/Diet/Wound Care/Special Instructions: No heavy lifting, limit stairs and driving, and pelvic rest. If any high temperatures, heavy bleeding, or severe pain call my office Discharge Disposition: HOME SELF-CARE
[2019-03-16] MEDS ORDERED: HYDROcodone/APAP 5-325MG 1 EACH TAB PO ONE (11:59)
[2019-03-16 12:37] VITALS: PULSE 88
[2019-03-16 12:58] VITALS: BP 127/74
[2019-03-16] MEDS ORDERED: IBUPROFEN 200 MG TAB PO ONE (13:27)
== END 2019-03-16 13:35 | disposition home or self-care (01) ==
LOC: OR 08:48
PROVIDERS: ATTEND Obstetrics & Gynecology
DX: Z30.2 Encounter for sterilization (principal); D25.9 Leiomyoma of uterus, unspecified; Z90.49 Acquired absence of other specified parts of digestive tract; Z98.891 History of uterine scar from previous surgery
CPT/HCPCS: 81025; 88305; 58671; 58563; J2250; J1100; J2710; J2405; J2001; J3010; J1885; J0330; J2704; J1170

== ENCOUNTER → 2020-01-15 | Outpatient (CLI) | payer BC ==
--- NOTE | 2020-01-16 14:16 | MM ---
Reason for exam: screening (asymptomatic). Last mammogram was performed 1 year and 2 months ago. History: Family history of breast cancer in mother. Physical Findings: A clinical breast exam by your physician is recommended on an annual basis and results should be correlated with mammographic findings. MG 3D Screening Mammo W/Cad Bilateral CC and MLO view(s) were taken. Prior study comparison: November 23, 2018, bilateral MG screening mammo w CAD. October 25, 2017, bilateral MG screening mammo w CAD. The breast tissue is heterogeneously dense. This may lower the sensitivity of mammography. Focal asymmetry upper outer left breast is stable. No significant changes when compared with prior studies. ASSESSMENT: Benign, BI-RAD 2 RECOMMENDATION: Routine screening mammogram of both breasts in 1 year.
== END | disposition home or self-care (01) ==
LOC: RADMAMWWP 13:43
PROVIDERS: ATTEND Obstetrics & Gynecology
DX: Z12.31 Encounter for screening mammogram for malignant neoplasm of breast (principal)
CPT/HCPCS: 77063; 77067

== ENCOUNTER 2020-01-28 16:16 | Emergency (ER) | payer BC ==
[2020-01-28 16:20] VITALS: TEMP 97.1
[2020-01-28] MEDS ORDERED: SODIUM CHLORIDE 0.9% 1,000 ML IV STA (17:00)
[2020-01-28] MEDS ORDERED: ONDANSETRON 4 MG/2 ML VIAL IVP STA (17:00)
[2020-01-28] MEDS ORDERED: KETOROLAC 15 MG/ML 1 ML VIAL IVP STA (17:00)
[2020-01-28 17:17] LABS: Basophils % (A) 0 %; Eosinophils # (A) 0.1 k/uL (0-0.7); Eosinophils % (A) 1 %; HCT 40.9 % (34.0-46.0); HGB 12.9 gm/dL (11.4-16.0); Lymphocytes # (A) 1.1 k/uL (1.0-4.8); Lymphocytes % (A) 10 %; MCH 29.9 pg (25.0-35.0); MCHC 31.6 g/dL (31.0-37.0); MCV 94.9 fL (80.0-100.0); Mean Platelet Volume 8.4; Monocytes # (A) 0.3 k/uL (0-1.0); Monocytes % (A) 3 %; Neutrophils # (A) 9.7 k/uL (1.3-7.7); Neutrophils % (A) 85 %; Platelet Count 291 k/uL (150-450); RBC 4.31 m/uL (3.80-5.40); RDW 13.5 % (11.5-15.5); WBC 11.4 k/uL (3.8-10.6)
--- NOTE | 2020-01-28 17:23 | ED ---
General Adult HPI - General Chief complaint: Back Pain/Injury Stated complaint: Back Pain Time Seen by Provider: 01/28/20 16:35 Source: patient, RN notes reviewed Mode of arrival: wheelchair Limitations: no limitations - History of Present Illness Initial comments: 44-year-old female presents to the emergency room for a chief complaint of back pain. Patient has left mid back pain that has been ongoing for about 1 week now. She states this started when she was cleaning the floors. She felt a small pain in her back that has progressively worsened. She has been taking muscle relaxers prescribed by her doctor however this has not helped. She saba es abdominal pain. She denies fevers or chills. She denies dysuria. Patient did vomit once today. She denies bladder or bowel changes, weakness of the lower extremities, or pain radiating in the legs. Denies saddle anesthesia. States movement does make this pain worse.Patient has no other complaints at this time including shortness of breath, chest pain, abdominal pain, nausea or vomiting, headache, or visual changes. - Related Data Home Medications Medication Instructions Recorded Confirmed Acetaminophen-Codeine 300-30mg 1 tab PO BID PRN 01/28/20 01/28/20 [Tylenol w/codeine #3] Baclofen [Lioresal] 10 mg PO BID PRN 01/28/20 01/28/20 Methocarbamol [Robaxin-750] 750 mg PO TID PRN 01/28/20 01/28/20 methylPREDNISolone Dose Pack See Taper PO DIRECTED 01/28/20 01/28/20 [Medrol Dose Pack] Previous Rx's Medication Instructions Recorded HYDROcodone/APAP 5-325MG [[place] 1 tab PO Q6HR PRN #10 tab 01/28/20 5-325] predniSONE 50 mg PO DAILY #5 tablet 01/28/20 Allergies Allergy/AdvReac Type Severity Reaction Status Date / Time No Known Allergies Allergy Verified 01/28/20 19:15 Review of Systems ROS Statement: Those systems with pertinent positive or pertinent negative responses have been documented in the HPI. ROS Other: All systems not noted in ROS Statement are negative. Past Medical History Past Medical History: No Reported History Additional Past Medical History / Comment(s): GALLBLADDER DISORDER History of Any Multi-Drug Resistant Organisms: None Reported Past Surgical History: Section, Cholecystectomy Additional Past Surgical History / Comment(s): C-SECT X 2 Past Anesthesia/Blood Transfusion Reactions: No Reported Reaction Past Psychological History: No Psychological Hx Reported Smoking Status: Never smoker Past Alcohol Use History: None Reported Past Drug Use History: None Reported - Past Family History Mother Family Medical History: Cancer General Exam Limitations: no limitations General appearance: alert, in no apparent distress Head exam: Present: atraumatic Eye exam: Present: normal appearance, PERRL, EOMI. Absent: scleral icterus, conjunctival injection, periorbital swelling ENT exam: Present: normal exam, mucous membranes moist Neck exam: Present: normal inspection, full ROM. Absent: tenderness, meningismus, lymphadenopathy Respiratory exam: Present: normal lung sounds bilaterally. Absent: respiratory distress, wheezes, rales, rhonchi, stridor Cardiovascular Exam: Present: regular rate, normal rhythm, normal heart sounds. Absent: systolic murmur, diastolic murmur, rubs, gallop, clicks GI/Abdominal exam: Present: soft, normal bowel sounds. Absent: distended, tenderness, guarding, rebound, rigid Back exam: Absent: CVA tenderness (R), CVA tenderness (L), paraspinal tenderness, vertebral tenderness Neurological exam: Present: alert. Absent: normal gait (Patient has antalgic gait but is able to ambulate.) Course Vital Signs 01/28/20 16:17 Temperature 97.1 F L Pulse Rate 83 Respiratory 20 Rate Blood Pressure 135/81 O2 Sat by Pulse 100 Oximetry Medical Decision Making - Medical Decision Making Vitals are stable. Patient is afebrile. Patient complains of left low back pain worsening with movement after cleaning a floor most consistent with mechanical back pain. Patient is able to stand and ambulate however does have pain with doing so. No significant back tenderness. CBC CMP is unremarkable. Urinalysis does not show any obvious evidence of infection. Patient continued to have pain after laboratory evaluation is performed. Patient was also complaining of mid left back pain. CT abdomen and pelvis was obtained given her possible kidney stone versus additional etiology. No acute abnormality is noted. Patient was given medications which did help somewhat with her pain. However patient did have pain in the emergency room. I did offer patient admission twice which she both times refused. Patient would prefer to try discharge home and follow-up with her doctor again. However she is aware that if she has any worsening symptoms she should return to the emergency room. I discussed this case with attending Dr. Hill who agrees with this assessment and treatment plan. - Lab Data Result diagrams: 01/28/20 17:00 01/28/20 17:00 Lab Results 01/28/20 01/28/20 01/28/20 Range/Units 17:00 17:00 17:00 WBC 11.4 H (3.8-10.6) k/uL RBC 4.31 (3.80-5.40) m/uL Hgb 12.9 (11.4-16.0) gm/dL Hct 40.9 (34.0-46.0) % MCV 94.9 (80.0-100.0) fL MCH 29.9 (25.0-35.0) pg MCHC 31.6 (31.0-37.0) g/dL RDW 13.5 (11.5-15.5) % Plt Count 291 (150-450) k/uL Neutrophils % 85 % Lymphocytes % 10 % Monocytes % 3 % Eosinophils % 1 % Basophils % 0 % Neutrophils # 9.7 H (1.3-7.7) k/uL Lymphocytes # 1.1 (1.0-4.8) k/uL Monocytes # 0.3 (0-1.0) k/uL Eosinophils # 0.1 (0-0.7) k/uL Basophils # 0.0 (0-0.2) k/uL Sodium (137-145) mmol/L Potassium (3.5-5.1) mmol/L Chloride (98-107) mmol/L Carbon Dioxide (22-30) mmol/L Anion Gap mmol/L BUN (7-17) mg/dL Creatinine (0.52-1.04) mg/dL Est GFR (CKD-EPI)AfAm (>60 ml/min/1.73 sqM) Est GFR (CKD-EPI)NonAf (>60 ml/min/1.73 sqM) Glucose (74-99) mg/dL Calcium (8.4-10.2) mg/dL Total Bilirubin (0.2-1.3) mg/dL AST (14-36) U/L ALT (4-34) U/L Alkaline Phosphatase (38-126) U/L Total Protein (6.3-8.2) g/dL Albumin (3.5-5.0) g/dL Amylase (30-110) U/L Lipase (23-300) U/L Urine Color Yellow Urine Appearance Cloudy H (Clear) Urine pH 8.0 (5.0-8.0) Ur Specific [place] 1.034 (1.001-1.035) Urine Protein Trace H (Negative) Urine Glucose (UA) Negative (Negative) Urine Ketones Negative (Negative) Urine Blood Negative (Negative) Urine Nitrite Negative (Negative) Urine Bilirubin Negative (Negative) Urine Urobilinogen 2.0 (<2.0) mg/dL Ur Leukocyte Esterase Trace H (Negative) Urine RBC 3 (0-5) /hpf Urine WBC 5 (0-5) /hpf Ur Squamous Epith Cells 16 H (0-4) /hpf Amorphous Sediment Occasional H (None) /hpf Urine Mucus Few H (None) /hpf Urine HCG, Qual Not Detected (Not Detectd) 01/27/ Range/Units 17:00 WBC (3.8-10.6) k/uL RBC (3.80-5.40) m/uL Hgb (11.4-16.0) gm/dL Hct (34.0-46.0) % MCV (80.0-100.0) fL MCH (25.0-35.0) pg MCHC (31.0-37.0) g/dL RDW (11.5-15.5) % Plt Count (150-450) k/uL Neutrophils % % Lymphocytes % % Monocytes % % Eosinophils % % Basophils % % Neutrophils # (1.3-7.7) k/uL Lymphocytes # (1.0-4.8) k/uL Monocytes # (0-1.0) k/uL Eosinophils # (0-0.7) k/uL Basophils # (0-0.2) k/uL Sodium 138 (137-145) mmol/L Potassium 4.2 (3.5-5.1) mmol/L Chloride 107 (98-107) mmol/L Carbon Dioxide 27 (22-30) mmol/L Anion Gap 4 mmol/L BUN 17 (7-17) mg/dL Creatinine 0.64 (0.52-1.04) mg/dL Est GFR (CKD-EPI)AfAm >90 (>60 ml/min/1.73 sqM) Est GFR (CKD-EPI)NonAf >90 (>60 ml/min/1.73 sqM) Glucose 127 H (74-99) mg/dL Calcium 9.3 (8.4-10.2) mg/dL Total Bilirubin 0.4 (0.2-1.3) mg/dL AST 29 (14-36) U/L ALT 33 (4-34) U/L Alkaline Phosphatase 54 (38-126) U/L Total Protein 7.5 (6.3-8.2) g/dL Albumin 4.0 (3.5-5.0) g/dL Amylase 56 (30-110) U/L Lipase 27 (23-300) U/L Urine Color Urine Appearance (Clear) Urine pH (5.0-8.0) Ur Specific [place] (1.001-1.035) Urine Protein (Negative) Urine Glucose (UA) (Negative) Urine Ketones (Negative) Urine Blood (Negative) Urine Nitrite (Negative) Urine Bilirubin (Negative) Urine Urobilinogen (<2.0) mg/dL Ur Leukocyte Esterase (Negative) Urine RBC (0-5) /hpf Urine WBC (0-5) /hpf Ur Squamous Epith Cells (0-4) /hpf Amorphous Sediment (None) /hpf Urine Mucus (None) /hpf Urine HCG, Qual (Not Detectd) Disposition Clinical Impression: Back pain Disposition: HOME SELF-CARE Condition: Good Instructions (If sedation given, give patient instructions): Acute Low Back Pain (ED) Additional Instructions: Please follow up with orthopedics by calling tomorrow for an appointment. In the meantime please take steroid as directed. Take an [place] as needed. If you're having worsening symptoms such as bladder or bowel changes, numbness or tingling of the groin or buttock, weakness of the lower extremities, or fevers return to the emergency room. Prescriptions: HYDROcodone/APAP 5-325MG [[place] 5-325] 1 tab PO Q6HR PRN #10 tab PRN Reason: Pain predniSONE 50 mg PO DAILY #5 tablet Is patient prescribed a controlled substance at d/c from ED?: Yes When asked, does pt state using other controlled substances?: No If prescribed controlled substance>3 days was MAPS reviewed?: Prescribed <3 Days If opioid is for acute pain is fill amount 7 days or less?: Yes If Rx opioid, was Start Talking consent form obtained?: Yes Referrals: Raquel Cheney MD [REFERRING] - 1-2 days Hany Thomson DO [Doctor of Osteopathic Medicine] - 1-2 days Time of Disposition: 19:16
[2020-01-28 17:28] LABS: ALT 33 U/L (4-34); AST 29 U/L (14-36); African American GFR (CKD) >90 (>60 ml/min/1.73 sqM); Alkaline Phosphatase 54 U/L (38-126); Amylase 56 U/L (30-110); Anion Gap 4 mmol/L; Blood Urea Nitrogen 17 mg/dL (7-17); Calcium 9.3 mg/dL (8.4-10.2); Carbon Dioxide 27 mmol/L (22-30); Chloride 107 mmol/L (98-107); Glucose 127 mg/dL (74-99); Non-African American GFR(CKD) >90 (>60 ml/min/1.73 sqM); Potassium 4.2 mmol/L (3.5-5.1); Sodium 138 mmol/L (137-145); Total Bilirubin 0.4 mg/dL (0.2-1.3); Total Protein 7.5 g/dL (6.3-8.2)
[2020-01-28] MEDS ORDERED: HYDROmorphone 0.5 MG/0.5 ML SYRINGE IVP STA ×2 (17:32→19:13)
[2020-01-28 17:44] LABS: Amorphous Sediment,Urine Occasional /hpf; Appearance,Urine Cloudy (Clear); Bilirubin,Urine Negative (Negative); Blood,Urine Negative (Negative); Color,Urine Yellow; Glucose,Urine (UA) Negative (Negative); Ketones,Urine Negative (Negative); Leukocyte Esterase,Urine Trace (Negative); Mucus,Urine Few /hpf; Nitrite,Urine Negative (Negative); Protein,Urine Trace (Negative); RBC,Urine 3 /hpf (0-5); Specific Gravity,Urine 1.034 (1.001-1.035); Squamous Epithelial Cell,Urine 16 /hpf (0-4); WBC,Urine 5 /hpf (0-5)
--- NOTE | 2020-01-28 18:53 | CT ---
EXAMINATION TYPE: CT abdomen pelvis w con DATE OF EXAM: 01/28/2020 COMPARISON: 12/23/2016 HISTORY: flank pain CT DLP: 2131.3 mGycm Automated exposure control for dose reduction was used. CONTRAST: Performed with IV Contrast, patient injected with 100 mL of Isovue 300. There is some interstitial infiltrate and atelectasis at the lung bases that is new compared to old e xam. Heart is borderline enlarged. There is no pleural effusion. There is bilobed 2 cm cyst in the right lobe of the liver. Spleen appears normal. There is no evidenc e of pancreatic mass. Stomach is intact. Gallbladder appears absent. The bile ducts are not dilated. There is no adrenal mass. Kidneys show satisfactory contrast opacification. There is no hydronephrosi s. There is normal excretion on the delayed images. There is no retroperitoneal adenopathy. Bladder d istends smoothly. There is no inguinal hernia. Uterus is anteverted. The cul-de-sac is clear fluid. T here are clips from tubal ligation. Appendix is not definitely seen. There is no sign of thickened appendix. There is no mesenteric edema. There is no ascites or free air. There is no bowel obstruction. The lum bar vertebra have fairly normal spacing and alignment. There is no compression fracture. Bony pelvis is intact. Hip joints are intact. IMPRESSION: There is mild subsegmental atelectasis and interstitial density at the lung bases increased compared to old exam. No acute abnormality within the abdomen pelvis. No adverse change in the abdomen pelvis compared to old exam.
[2020-01-28 19:32] VITALS: BP 128/82; PULSE 79; RESP 16
== END 2020-01-28 19:38 | disposition home or self-care (01) ==
LOC: EC 16:16
DX: M54.6 Pain in thoracic spine (principal); M54.5 Low back pain; Z79.52 Long term (current) use of systemic steroids
CPT/HCPCS: 36415; 80053; 82150; 83690; 85025; 81001; 81025; 74177; 99284; 96374; 96375 ×2; 96376; 96361; J2405; J1885; J1170; Q9967

== ENCOUNTER → 2021-01-15 | Outpatient (CLI) | payer BC ==
--- NOTE | 2021-01-17 09:42 | MM ---
Reason for exam: screening (asymptomatic). Last mammogram was performed 1 year ago. History: Family history of breast cancer in mother. Physical Findings: A clinical breast exam by your physician is recommended on an annual basis and results should be correlated with mammographic findings. MG 3D Screening Mammo W/Cad Bilateral CC and MLO view(s) were taken. Prior study comparison: January 15, 2020, bilateral MG 3d screening mammo w/cad. November 23, 2018, bilateral MG screening mammo w CAD. The breast tissue is heterogeneously dense. This may lower the sensitivity of mammography. There are benign appearing round calcifications bilaterally. There is no discrete abnormality. ASSESSMENT: Benign, BI-RAD 2 RECOMMENDATION: Routine screening mammogram of both breasts in 1 year.
== END | disposition home or self-care (01) ==
LOC: RADMAMWWP 16:46
PROVIDERS: ATTEND Obstetrics & Gynecology
DX: Z12.31 Encounter for screening mammogram for malignant neoplasm of breast (principal); Z80.3 Family history of malignant neoplasm of breast
CPT/HCPCS: 77063; 77067

== ENCOUNTER → 2021-08-12 | Outpatient (CLI) | payer BC ==
--- NOTE | 2021-08-13 07:09 | US ---
EXAMINATION TYPE: US kidneys/renal and bladder DATE OF EXAM: 08/12/2021 COMPARISON: NONE CLINICAL HISTORY: N39.0 FREQUENT UTI'S. UTI EXAM MEASUREMENTS: Right Kidney: 9.7 x 3.9 x 3.2 cm Left Kidney: 10.2 x 5.0 x 4.2 cm Right Kidney: No hydronephrosis or masses seen Left Kidney: No hydronephrosis or masses seen Bladder: wnl Bilateral Jets seen: Yes There is no evidence for hydronephrosis at this point in time. No nephrolithiasis is seen. No martha s are identified. The urinary bladder is anechoic. Bilateral ureteral jets are seen. IMPRESSION: No discrete abnormality seen.
== END | disposition home or self-care (01) ==
LOC: RADUSWWP 15:48
PROVIDERS: ATTEND Internal Medicine
DX: N39.0 Urinary tract infection, site not specified (principal)
CPT/HCPCS: 76770

== ENCOUNTER 2021-11-07 10:38 | Day surgery (SDC) | payer BC ==
[2021-11-05 15:23] VITALS: BMI 37.8
[~2021-11-07 10:38] MED LIST changes: -DEXAMETHASONE SOD PHOSPHATE 10 MG/ML 1 ML VIAL IV ONE; -MIDAZOLAM 2 MG/2 ML VIAL IV PRN; -Pre Op ABX Message 1 EACH MISC MISCELLANE ONE; -SCOPOLAMINE 1.5MG/72HR PATCH TRANSDERM ONE
[2021-11-07 11:08] VITALS: RESP 16; TEMP 97.6
[2021-11-07] MEDS ORDERED: ONDANSETRON 4 MG/2 ML VIAL ONE (11:22)
[2021-11-07] MEDS ORDERED: ONDANSETRON 4 MG/2 ML VIAL IVP STA (11:22)
[2021-11-07] MEDS ORDERED: PROPOFOL 10 MG/ML 20 ML VIAL IV ONE (12:09)
--- NOTE | 2021-11-07 12:24 | P.PCN ---
Date of Procedure: 11/07/21 Procedure(s) Performed: BRIEF HISTORY: Patient is a 46-year-old pleasant female scheduled for an elective colonoscopy as a part of evaluation change in bowel habits for the last 2 months duration. PROCEDURE PERFORMED: Colonoscopy. PREOPERATIVE DIAGNOSIS: Change in bowel habits of 2 months duration. IV sedation per Anesthesia. PROCEDURE: After informed consent was obtained, the patient, was brought into the endoscopy unit. IV sedation was administered by Anesthesia under continuous monitoring. Digital rectal examination was normal. Initially the Olympus CF-160 flexible video colonoscope was then inserted in the rectum, gradually advanced into the cecum without any difficulty. Careful examination was performed as the scope was gradually being withdrawn. Ileocecal valve and the appendiceal orifice were visualized and appeared normal. Prep was excellent. Mucosa of the cecum, ascending colon, transverse colon, descending colon, sigmoid colon, and rectum appeared normal. Retroflexion was performed in the rectum and no lesions were seen. The patient tolerated the procedure well. IMPRESSION: Normal-appearing colon from rectum to cecum with no evidence of colorectal neoplasia . RECOMMENDATIONS: Findings of this examination were discussed with the patient as well as her family. She was advised to have a repeat screening colonoscopy in 10 years.
[2021-11-07 13:14] VITALS: BP 125/78; PULSE 78
== END 2021-11-07 13:25 | disposition home or self-care (01) ==
LOC: ORWHC2ENDO 10:38
PROVIDERS: ATTEND Internal Medicine Gastroenterology
DX: R19.4 Change in bowel habit (principal); R19.7 Diarrhea, unspecified; Z79.899 Other long term (current) drug therapy; Z80.9 Family history of malignant neoplasm, unspecified
CPT/HCPCS: 81025; 45378; J2405; J2704

== ENCOUNTER → 2022-01-27 | Outpatient (CLI) | payer BC ==
--- NOTE | 2022-01-27 17:52 | XR ---
Lumbar spine HISTORY: Pain 3 views of the lumbar spine There is overlying artifact. Lumbar vertebral bodies show preserved height, near anatomic alignment, and normal bone mineralizatio n. There is multilevel spondylosis. Mild grade 1 anterolisthesis is present L4-5. Loss of disc height is present at intervertebral levels, there is multilevel spondylosis. Sclerosis is present in the po sterior elements of the lower lumbar spine. Fallopian tubal ligation clips are present in the pelvis. IMPRESSION: Degenerative disc disease, facet arthropathy as described.
--- NOTE | 2022-01-27 17:55 | XR ---
Left RIBS HISTORY: Pain 4 views of the left RIBS Bone mineralization is maintained. Left lung as visualized is normal. No evident displaced rib fractu re. There is thoracic spondylosis. IMPRESSION: No acute rib abnormalities evident. Bone scan could be performed for increased sensitivit y as indicated.
== END | disposition home or self-care (01) ==
LOC: RADXRMAIN 17:18
PROVIDERS: ATTEND Internal Medicine
DX: M51.36 Other intervertebral disc degeneration, lumbar region (principal); M47.816 Spondylosis without myelopathy or radiculopathy, lumbar region; R10.12 Left upper quadrant pain
CPT/HCPCS: 72100

== ENCOUNTER → 2022-03-10 | Outpatient (CLI) | payer BC ==
--- NOTE | 2022-03-10 12:14 | XR ---
EXAMINATION TYPE: XR chest 2V DATE OF EXAM: 03/10/2022 COMPARISON: NONE TECHNIQUE: PA and lateral views submitted. HISTORY: Chest pain FINDINGS: The lungs are clear and there is no pneumothorax, pleural effusion, or focal pneumonia. Heart size normal. No overt failure. IMPRESSION: 1. No acute process.
== END | disposition home or self-care (01) ==
LOC: RADXRMAIN 11:44
PROVIDERS: ATTEND Internal Medicine
DX: R07.9 Chest pain, unspecified (principal)
CPT/HCPCS: 71046

== ENCOUNTER → 2022-03-13 | Outpatient (CLI) | payer BC ==
--- NOTE | 2022-03-13 20:56 | MR ---
EXAMINATION TYPE: MR lumbar spine wo con DATE OF EXAM: 03/13/2022 5:57 PM COMPARISON: MR lumbar spine 09/13/2018. CLINICAL INDICATION:Female, 46 years old with history of M43.16 SPONDYLOLISTHESIS, LUMBAR TECHNIQUE: Multi planar, multi sequence imaging was performed utilizing: T1-weighted, T2-weighted, a nd turbo inversion recovery imaging of the lumbar spine. IV Contrast: None. FINDINGS: Alignment: The lumbar vertebral bodies have preserved heights and alignment. Cord: The conus medullaris and the distal spinal cord appear unremarkable with regards to their signa l intensity and morphology. Bones/Discs: Bone signal is within normal limits. Scattered heterogenous bone marrow signal. The sign al is maintained. L1-L2: No evidence of significant spinal canal stenosis or neural foraminal stenosis. L2-L3: No evidence of significant spinal canal stenosis or neural foraminal stenosis. L3-L4: No evidence of significant spinal canal stenosis. Facet joint arthropathy mild bilateral neura l foraminal stenosis. L4-L5: Disc bulge and facet joint arthropathy without significant spinal canal and mild bilateral natali ral foraminal stenosis. L5-S1: No evidence of significant spinal canal stenosis. Facet joint arthropathy mild bilateral neura l foraminal stenosis. IMPRESSION: 1. No definitive evidence of disc herniation or significant spinal canal stenosis. No significant ch yasmine from prior. 2. Mild Multilevel disc degeneration with associated osteoarthritic changes.
== END | disposition home or self-care (01) ==
LOC: RADMRIMAIN 16:28
PROVIDERS: ATTEND Nurse Practitioner Family
DX: M51.36 Other intervertebral disc degeneration, lumbar region (principal); M43.16 Spondylolisthesis, lumbar region; M47.816 Spondylosis without myelopathy or radiculopathy, lumbar region
CPT/HCPCS: 72148

== ENCOUNTER → 2023-01-26 | Outpatient (CLI) | payer BC ==
--- NOTE | 2023-01-27 09:07 | MM ---
Reason for Exam: Screening (asymptomatic). Last mammogram was performed 2 year(s) and 0 month(s) ago. Patient History: Menarche at age 11. First Full-Term at age 18. 04/05/2021, Bilateral Reduction. Mother had breast cancer. Risk Values: Shannon 5 year model risk: 1.7%. NCI Lifetime model risk: 13.9%. Prior Study Comparison: 11/23/2018 Bilateral Screening Mammogram, [facility]. 01/15/2020 Bilateral Screening Mammogram, [facility]. 01/15/2021 Bilateral Screening Mammogram, [facility]. Tissue Density: The breast tissue is heterogeneously dense. This may lower the sensitivity of mammography. Findings: Analyzed By CAD. Multiple right-sided oil cysts are noted with associated calcifications. No suspicious calcifications or masses within either breast. Overall Assessment: Benign, BI-RAD 2 Management: Screening Mammogram of both breasts in 1 year. . Patient should continue monthly self-breast exams. A clinical breast exam by your physician is recommended on an annual basis. This exam should not preclude additional follow-up of suspicious palpable abnormalities. Note on Shannon scores and lifetime risk: 1. A Shannon score greater than 3% is considered moderate risk. If this is the case, consider specialist referral to assess eligibility for a risk reducing agent. 2. If overall lifetime risk for the development of breast cancer is 20% or higher, the patient may qualify for future screening with alternating mammogram and breast MRI. Electronically signed and approved by: Reyes Mendez M.D. Radiologis
== END | disposition home or self-care (01) ==
LOC: RADMAMWWP 16:37
PROVIDERS: ATTEND Obstetrics & Gynecology
DX: Z12.31 Encounter for screening mammogram for malignant neoplasm of breast (principal); Z80.3 Family history of malignant neoplasm of breast
CPT/HCPCS: 77063; 77067

== ENCOUNTER → 2024-01-28 | Outpatient (CLI) | payer BC ==
--- NOTE | 2024-01-31 14:17 | MM ---
Reason for Exam: Screening (asymptomatic). Last screening mammogram was performed 12 month(s) ago. Patient History: Menarche at age 11. First Full-Term at age 18. 04/05/2021, Bilateral Reduction. Mother had breast cancer, age 48. Risk Values: Shannon 5 year model risk: 1.8%. NCI Lifetime model risk: 13.7%. Prior Study Comparison: 01/15/2020 Bilateral Screening Mammogram, [facility]. 01/15/2021 Bilateral Screening Mammogram, [facility]. 01/26/2023 Bilateral MG 3D screening mammo w/cad, [facility]. Tissue Density: The breasts are heterogeneously dense, which may obscure small masses. Findings: Analyzed By CAD. Right breast: Increasing calcifications right breast posterior nipple and slightly inferior on MLO view and medial and cc view at anterior depth.. Asymmetry also present on MLO view measuring 9 mm 3.2 cm from nipple slightly superiorly on slightly superior not definitively seen on CC view. Left breast: There is no suspicious group of microcalcifications or new suspicious mass. Overall Assessment: Incomplete: need additional imaging evaluation, BI-RAD 0 Management: Diagnostic Mammogram of the right breast. Magnification views right breast along with spot compression MLO anterior depth. [facility] will attempt to contact patient to return for supplemental views and ultrasound if indicated. Patient should continue monthly self-breast exams. A clinical breast exam by your physician is recommended on an annual basis. This exam should not preclude additional follow-up of suspicious palpable abnormalities. Note on Shannon scores and lifetime risk: 1. A Shannon score greater than 3% is considered moderate risk. If this is the case, consider specialist referral to assess eligibility for a risk reducing agent. 2. If overall lifetime risk for the development of breast cancer is 20% or higher, the patient may qualify for future screening with alternating mammogram and breast MRI. [facility], , 01/31/2024 2:14 PM. Electronically signed and approved by: Mahad Navarro DO
== END | disposition home or self-care (01) ==
LOC: RADMAMWWP 16:22
PROVIDERS: ATTEND Obstetrics & Gynecology
CPT/HCPCS: 77063; 77067

== ENCOUNTER → 2024-02-02 | Outpatient (CLI) | payer BC ==
--- NOTE | 2024-02-02 08:05 | MM ---
Reason for Exam: Additional evaluation requested from abnormal screening. Last screening mammogram was performed less than 1 month ago. Patient History: Menarche at age 11. First Full-Term at age 18. 04/05/2021, Bilateral Reduction. Mother had breast cancer, age 48. Risk Values: Shannon 5 year model risk: 1.8%. NCI Lifetime model risk: 13.7%. Prior Study Comparison: 06/05/2004 Bilateral Screening Mammogram, [facility]. 10/25/2009 Bilateral Screening Mammogram, [facility]. 07/30/2014 Bilateral Screening Mammogram, [facility]. 08/12/2015 Bilateral Screening Mammogram, [facility]. 09/22/2016 Bilateral Screening Mammogram, [facility]. 10/25/2017 Bilateral Screening Mammogram, [facility]. 11/23/2018 Bilateral Screening Mammogram, [facility]. 01/15/2020 Bilateral Screening Mammogram, [facility]. 01/15/2021 Bilateral Screening Mammogram, [facility]. 01/26/2023 Bilateral MG 3D screening mammo w/cad, [facility]. 01/28/2024 Bilateral MG 3D screening mammo w/cad, [facility]. Tissue Density: Right: The breasts are heterogeneously dense, which may obscure small masses. Findings: Analyzed By CAD. Patient is status post reduction mammoplasty. Multiple areas of large oil cysts are demonstrated. The increasing calcifications have a dystrophic/heterogeneous appearance favoring fat necrosis calcification and these can continue to be followed. Question focal asymmetry superior anterior right MLO view on spot compression has an appearance unchanged from 2022 favoring a benign etiology. Reassess a follow-up. Overall Assessment: Probably benign, BI-RAD 3 Management: Diagnostic Mammogram of the right breast in 6 months. Results were given to the patient verbally at the time of exam. Patient should continue monthly self-breast exams. A clinical breast exam by your physician is recommended on an annual basis. This exam should not preclude additional follow-up of suspicious palpable abnormalities. Note on Shannon scores and lifetime risk: 1. A Shannon score greater than 3% is considered moderate risk. If this is the case, consider specialist referral to assess eligibility for a risk reducing agent. 2. If overall lifetime risk for the development of breast cancer is 20% or higher, the patient may qualify for future screening with alternating mammogram and breast MRI. [facility], , 02/02/2024 8:01 AM. Electronically signed and approved by: Rosanne Dietz M.D. Radiologist
== END | disposition home or self-care (01) ==
LOC: RADMAMWWP 07:32
PROVIDERS: ATTEND Obstetrics & Gynecology
CPT/HCPCS: 77061; 77065

== ENCOUNTER → 2024-07-19 | Outpatient (CLI) | payer BC ==
--- NOTE | 2024-07-19 20:44 | XR ---
EXAMINATION TYPE: XR cervical spine 3 views, XR shoulder 2 views LT DATE OF EXAM: 07/19/2024 6:29 PM COMPARISON: None CLINICAL INDICATION: Female, 49 years old with history of M99.01, M99.07; PHH, left-sided neck and sh oulder pain FINDINGS: Cervical spine: Straightening of the normal cervical lordosis. Preserved alignment. No predental space widening or pr evertebral soft tissue swelling. Mild degenerative disc disease with a endplate spondylosis C4-C7 lev els. Scattered mild facet and uncovertebral joint arthropathy. Normal odontoid view. Left shoulder: Mild to moderate degenerative change at the AC joint with marginal spurring. There may be some subtle subchondral osteal lysis at the AC joint versus ischemic change. Subacromial space is preserved. No acute fracture, subluxation, dislocation. IMPRESSION: 1. Cervical spine: Mild spondylotic changes C4-C7 levels. Straightening of the normal cervical lordos is could be positional or due to muscle spasm. No malalignment. 2. Left shoulder: Mild to moderate AC joint OA. Possible subtle subchondral osteolysis at this joint. Query any repetitive motion/exercise that could contribute to chronic microtrauma. Otherwise, no acu te osseous abnormalities seen. [facility], , 07/19/2024 8:42 PM
== END | disposition home or self-care (01) ==
LOC: RADXRMAIN 18:07
DX: M47.812 Spondylosis without myelopathy or radiculopathy, cervical region (principal); M99.01 Segmental and somatic dysfunction of cervical region; M99.07 Segmental and somatic dysfunction of upper extremity; M19.012 Primary osteoarthritis, left shoulder
CPT/HCPCS: 72040